=== PATIENT | male | born 1955 ===

== ENCOUNTER 2017-08-19 06:35 | Day surgery (SDC) | payer OTHER ==
[2017-08-19 06:53] VITALS: BMI 22.6
[2017-08-19] MEDS ORDERED: Lactated Ringer's 1,000 ML IV ONE (09:00)
--- NOTE | 2017-08-19 09:05 | CP.SDSHP ---
Same Day Surgery H & P - History Proposed Procedure: colonoscopy Pre-Op Diagnosis: screen - Previous Medical/Surgical History Comments: LILA - Allergies Allergies: Allergies No Known Allergies Allergy (Verified 08/19/17 06:53) - Physical Exam Vital Signs: Vital Signs 08/19/17 06:54 Temperature 98 F Pulse Rate 88 Respiratory 18 Rate Blood Pressure 117/64 O2 Sat by Pulse 98 Oximetry Mental Status: Alert & Oriented x3 Neuro: WNL Heart: WNL Lungs: WNL GI: WNL - {Optional Preform as Required} Abdomen: WNL - Impression Impression: screen Pt. Evaluated Today:Candidate for Anesthesia & Procedure: Yes - Date & Time Date: 08/19/17 Time: 09:05 Short Stay Discharge - Short Stay Discharge Admitting Diagnosis/Reason for Visit: SCREENING Disposition: HOME/ ROUTINE
[2017-08-19] MEDS ORDERED: Propofol 10 mg/ml Inj (20 ML) ONE ×2 (09:07→09:28)
[2017-08-19 10:37] VITALS: TEMP 96
[2017-08-19 10:44] VITALS: O2SAT 99
[2017-08-19 10:55] VITALS: BP 115/72; PULSE 60; RESP 20
== END 2017-08-19 10:45 | disposition home or self-care (01) ==
LOC: C.ENDO 06:35
PROVIDERS: ATTEND Internal Medicine Gastroenterology
DX: Z12.11 Encounter for screening for malignant neoplasm of colon (principal); K63.5 Polyp of colon; K64.8 Other hemorrhoids
CPT/HCPCS: 45380; 88305; J2704; J7120